=== PATIENT | female | born 1970 | race African-American/Black ===

== ENCOUNTER 2019-11-29 13:26 | Outpatient (CLI) | payer OTHER | END 2019-11-29 20:31 | disposition home or self-care (01) | LOC: RAD 13:26 | DX: J20.9 Acute bronchitis, unspecified (principal) ==

== ENCOUNTER 2022-12-08 13:21 | Outpatient (CLI) | payer OTHER | END 2022-12-08 17:00 | disposition home or self-care (01) | LOC: RAD 13:21 | PROVIDERS: ATTEND Nurse Practitioner Family | DX: Z86.11 Personal history of tuberculosis (principal) ==

== ENCOUNTER 2022-12-08 21:07 | Outpatient (CLI) | payer OTHER | END 2022-12-08 22:00 | disposition home or self-care (01) | LOC: LABW 21:07 | PROVIDERS: ATTEND Nurse Practitioner Family | DX: J20.9 Acute bronchitis, unspecified (principal) | CPT/HCPCS: 36415; 85379 ==